=== PATIENT | female | born 1965 | race Two or more races ===

== ENCOUNTER 2022-05-27 06:00 | Day surgery (SDC) | payer OTHER ==
[2022-05-27] MEDS ORDERED: IBU600 MG PO (08:57)
== END 2022-05-27 10:35 | disposition home or self-care (01) ==
LOC: CIR.AMB 06:00
PROVIDERS: ATTEND Obstetrics & Gynecology Gynecology
DX: R93.89 Abnormal findings on diagnostic imaging of other specified body structures (principal); N72 Inflammatory disease of cervix uteri; N87.9 Dysplasia of cervix uteri, unspecified; N95.0 Postmenopausal bleeding; Z20.822 Contact with and (suspected) exposure to COVID-19